=== PATIENT | male | born 1960 | race Caucasian/White ===

== ENCOUNTER 2019-07-13 19:37 | Emergency (ER) | payer OTHER ==
[2019-07-13] MEDS ORDERED: SODIUM CHLORIDE 1,000 ML IV STA (19:43)
[2019-07-13 19:54] VITALS: BP 147/85; PULSE 86; TEMP 98.8; BMI 31.9
[2019-07-13 20:16] LABS: BASO % 1.7 % (0-2.0); EOS % 2.3 % (0-4.5); HEMATOCRIT 41.8 % (35.4-49); LYMPH % 10.8 % (8-40); MCH 29.9 pg (25.7-33.7); MCHC 33.5 g/dl (32.0-35.9); MEAN CELL VOLUME 89.1 fl (80-96); MEAN PLT VOLUME 9.3 fl (7.5-11.1); MONO % 9.3 % (3.8-10.2); NEUT % 75.9 % (42.8-82.8); PLATELET COUNT 245 K/MM3 (134-434); RBC 4.69 M/mm3 (4.00-5.60); RDW 13.1 % (11.9-15.9); WHITE BLOOD COUNT 13.2 K/mm3 (4.0-10.8)
[2019-07-13 20:28] LABS: ALBUMIN 3.8 g/dl (3.4-5.0); CALCIUM 9.1 mg/dl (8.5-10); CREATININE 0.9 mg/dl (0.55-1.3); TOT PROT 6.6 g/dl (6.4-8.2)
[2019-07-13] MEDS ORDERED: metroNIDAZOLE 250 MG TABLET PO ONE (23:11)
[2019-07-13] MEDS ORDERED: metroNIDAZOLE 250 MG TABLET ONE (23:12)
--- NOTE | 2019-07-13 23:24 | PDOC ---
Documentation entered by Vipul Oneal SCRIBE, acting as scribe for Crystal Nunez MD. Crystal Nunez MD: This documentation has been prepared by the Jm degroot Aiswarya, SCRIBE, under my direction and personally reviewed by me in its entirety. I confirm that the documentation accurately reflects all work, treatment, procedures, and medical decision making performed by me. History of Present Illness - General Chief Complaint: Pain Stated Complaint: LLQ ABD PAIN Time Seen by Provider: 07/13/19 19:40 History Source: Patient Exam Limitations: No Limitations - History of Present Illness Initial Comments: 07/13/19 21:12 The patient is a 59 year old male, with a significant PMH of diverticulitis, who presents to the emergency department today complaining LLQ constant intermittent abdominal pain that began 10 to 14 days ago. The patient states he endorses associated symptoms of sweats, weakness and diarrhea with a severity of 3/10. He states he has had flares in the past that was treated with antibiotics. The patient denies chest pain, shortness of breath, headache and dizziness.Denies fever, chills, nausea, vomit and constipation.Denies dysuria, frequency, urgency and hematuria. Allergies: NKDA Past surgical history: None reported Social history: None reported PCP: Dr. Saini Is this a multiple visit Asthma Patient?: No Past History - Past Medical History Allergies/Adverse Reactions: Allergies Allergy/AdvReac Type Severity Reaction Status Date / Time No Known Allergies Allergy Verified 07/13/19 19:39 Home Medications: Ambulatory Orders Amox-Tr/K Cl [Augmentin - 500Mg Tablet] 1 tab PO BID #20 tablet 07/13/19 Bifidobacterium Infantis [Align] 10.5 mg PO DAILY #30 tab.chew 07/13/19 metroNIDAZOLE [Flagyl -] 500 mg PO TID #30 tablet 07/13/19 COPD: No GI Disorders: Yes (diverticulitis) Hypercholesterolemia: Yes - Surgical History Cardiac Surgery: Yes (as a child) - Psycho Social/Smoking Cessation Hx Smoking History: Former smoker Have you smoked in the past 12 months: No Information on smoking cessation initiated: No Hx Alcohol Use: No Substance Use Type: None, Alcohol Review of Systems - Review of Systems Able to Perform ROS?: Yes Comments:: 07/13/19 21:13 GENERAL/CONSTITUTIONAL: No fever or chills. No weakness. CARDIOVASCULAR: No chest pain or shortness of breath. RESPIRATORY: No cough, wheezing, or hemoptysis. GASTROINTESTINAL: +diarrhea. LLQ pain No nausea, vomiting or constipation. GENITOURINARY: No dysuria, frequency, or change in urination. MUSCULOSKELETAL: No joint or muscle swelling or pain. No neck or back pain. SKIN: No rash NEUROLOGIC: No headache, vertigo, loss of consciousness, or change in strength/ sensation. *Physical Exam - Vital Signs Last Vital Signs Temp Pulse Resp BP Pulse Ox 98.8 F 86 18 147/85 97 07/13/19 19:37 07/13/19 19:37 07/13/19 19:37 07/13/19 19:37 07/13/19 19:37 - Physical Exam Comments: 07/13/19 21:15 GENERAL: The patient is in no acute distress. HEAD: Normal with no signs of trauma. LUNGS: Breath sounds equal, clear to auscultation bilaterally. No wheezes, and no crackles. HEART:Regular rate and rhythm, normal S1 and S2 without murmur, rub or gallop. ABDOMEN: +LLQ tenderness on palpation. EXTREMITIES: Normal range of motion, no edema. No clubbing or cyanosis. No erythema, or tenderness. NEUROLOGICAL: Cranial nerves II through XII grossly intact. Normal speech. No focal neurological deficits. MUSCULOSKELETAL: Back non-tender to palpation, no CVA tenderness SKIN: Warm, Dry, normal turgor, no rashes or lesions noted. ED Treatment Course - LABORATORY CBC & Chemistry Diagram: 07/13/19 20:00 07/13/19 20:00 - ADDITIONAL ORDERS Additional order review: Laboratory Results 07/13/19 20:00 Sodium 137 Potassium 4.0 Chloride 104 Carbon Dioxide 27 Anion Gap 6 L BUN 17.0 Creatinine 0.9 Est GFR (CKD-EPI)AfAm 106.46 Est GFR (CKD-EPI)NonAf 91.86 Random Glucose 108 H Calcium 9.1 Total Bilirubin 1.0 AST 22 ALT 21 Alkaline Phosphatase 69 Total Protein 6.6 Albumin 3.8 07/13/19 20:00 RBC 4.69 MCV 89.1 MCHC 33.5 RDW 13.1 MPV 9.3 Neutrophils % 75.9 Lymphocytes % 10.8 D Monocytes % 9.3 Eosinophils % 2.3 D Basophils % 1.7 D - RADIOLOGY Radiology Studies Ordered: Category Date Time Status ABDOMEN & PELVIS CT WITH CONTR [CT] Stat CT Scan 07/13/19 19:41 Ordered Medical Decision Making - Medical Decision Making 07/13/19 20:54 Mr Modi is a 59 yo M who presents to the ER with a complaint of LLQ abdominal pain He has a history of diverticulitis Pt presents To the ER with a complaint of left lower quadrant pain. Patient states his symptoms began between 10 and 14 days ago. He initially noted what he thought was a gastroenteritis. Subsequent to that he noted persistent left lower quadrant pain and tenderness. His pain progressively worsened over the course of 10 days. He thought this was likely diverticulitis and changed his diet (which is how history of diverticulitis in the past) (. He decided to seek medical attention because his pain has not improved. Patient has noted night sweats, although has not documented a fever. Patient denies nausea, vomiting. Has normal appetite. Patient has noted loose stools. Patient reports pain is in the left lower quadrant, constant, intermittently worsening, worse with palpation of the area. Pain is rated 3/10 Of note, patient denies any recent travel. Is followed by Dr. Saini but has not seen him in several years. Last colonoscopy was approximately 10 years ago On examination: Heart lungs are normal Abdomen is soft, nondistended. Patient has left lower quadrant tenderness to palpation, no involuntary guarding or rebound. Includes but is not limited to: Diverticulitis (uncomplicated/complicated), colitis, kidney stone Will do: Labs, IV fluids Patient refuses pain medication at this time Will do CT of the abdomen and pelvis. 07/13/19 22:43 LABS: Laboratory Tests 07/13/19 20:00 WBC 13.2 H Hgb 14.0 Hct 41.8 Plt Count 245 Neutrophils % 75.9 CT: THIS IS A PRELIMINARY REPORT FROM [facility] DATE OF SERVICE: 2019-07-13 21:51:22 IMAGES: 518 EXAM: ABDOMEN \T\ PELVIS CT WITH CONTR HISTORY: 59-Year-Old Male Left Lower Quadrant Tenderness. COMPARISON: None. CONTRAST: 100 mL intravenous contrast and oral contrast was administered FINDINGS: Mild basilar atelectasis. Liver gallbladder spleen and right adrenal glands and kidneys appear unremarkable. Mild atherosclerosis of the abdominal pelvic vasculature. Nonspecific masslike prominence of the body the pancreas measures approximately 1.7 x 1.6 cm on axial image 57 on image 54 with abnormal dilation of the pancreatic duct in the tail of the pancreas and asymmetric atrophy of the pancreatic tail may be benign or malignant. Left adrenal nonspecific 3.2 x 2.8 x 2.5 cm masslike prominence on axial image 48 and coronal image 35 may be benign or malignant. Stomach small bowel and appendix appear unremarkable. No appendicitis. Acute diverticulitis of the descending and sigmoid colon with pericolonic fluid from infection and other underlying disease in the wall of the sigmoid colon cannot be excluded on axial image 109 and coronal image 31. No free air. No abscess. Nodular nonspecific prostatomegaly. Bladder appears unremarkable. Small umbilical and small inguinal hernias of omental fat without incarceration. Moderate to severe degenerative disc disease. Moderate to severe degenerative joint disease of lower lumbar facets. Moderate to severe multilevel neural foraminal narrowing in the lower lumbar levels. Mild degenerative joint disease of the hips. IMPRESSION: Nonspecific masslike prominence of the body the pancreas measures approximately 1.7 x 1.6 cm on axial image 57 on image 54 with abnormal dilation of the pancreatic duct in the tail of the pancreas and asymmetric atrophy of the pancreatic tail may be benign or malignant. If clinically indicated follow up outpatient MRI pancreas with contrast may be needed. Left adrenal nonspecific 3.2 x 2.8 x 2.5 cm masslike prominence on axial image 48 and coronal image 35 may be benign or malignant. If clinically indicated follow up outpatient MRI abdomen adrenal gland protocol may be needed. Acute diverticulitis of the descending and sigmoid colon with pericolonic fluid from infection and other underlying disease in the wall of the sigmoid colon cannot be excluded on axial image 109 and coronal image 31. If clinically indicated follow-up outpatient evaluation following treatment for acute diverticulitis may be needed to exclude underlying disease. Nodular nonspecific prostatomegaly. If clinically indicated follow up outpatient PSA level may be needed. This CT exam was performed using one or more of the following dose reduction techniques: automated exposure control, adjustment of the mA and/or kV according to patient size, use of iterative reconstruction technique. 07/13/19 23:17 All results reviewed with patient He would like to be discharged to home Plan will be to follow up with PMD and GI Pt also knows that he will need to follow up with Urology Will initiate abx therapy and Probiotic Pt understands the importance of monitoring for fevers If fevers, pt must return to the ER If increased pain, abdominal distention, must return to the ER Clinical impression: Acute Uncomplicated Diverticulitis, initial presentation Prostate enlargement, initial presentation Adrenal mass, initial presentation Discharge - Discharge Information Problems reviewed: Yes Clinical Impression/Diagnosis: Diverticulitis large intestine Qualifiers: Diverticulitis bleeding: without bleeding Diverticulitis complication: without perforation or abscess Qualified Code(s): K57.32 - Diverticulitis of large intestine without perforation or abscess without bleeding Condition: Stable Disposition: HOME - Admission No - Additional Discharge Information Health Concerns: Diverticulitis Enlarged Prostate Adrenal Mass Pancreatic Abnormality Goals: Follow up with PMD and GI Initiate Antibiotic therapy Prescriptions: Amox-Tr/K Cl [Augmentin - 500Mg Tablet] 1 tab PO BID #20 tablet Bifidobacterium Infantis [Align] 10.5 mg PO DAILY #30 tab.chew metroNIDAZOLE [Flagyl -] 500 mg PO TID #30 tablet Prescription Drug Monitoring Program (I-STOP) results: I-STOP not reviewed - Follow up/Referral Referrals: Mally Poole [Primary Care Provider] - - Patient Discharge Instructions Patient Printed Discharge Instructions: DI for Diverticulitis Additional Instructions: Return to the emergency department immediately with ANY new, persistent or worsening symptoms. Continue any medications as previously prescribed by your physician. Please initiate antibiotic therapy as well as Probiotics You should follow up with your primary doctor and [employer] as soon as possible regarding today's emergency department visit. Please make sure your doctor reviews the results of your emergency evaluation. Thank you for coming to the [facility] today for your care. It was a pleasure to see you today. Please note that your evaluation is INCOMPLETE until you follow-up with your doctor. - Post Discharge Activity Work/Back to School Note: Back to Work
== END 2019-07-13 23:40 | disposition home or self-care (01) ==
LOC: FER 19:37
PROC: 3E0337Z Introduction of Electrolytic and Water Balance Substance into Peripheral Vein, Percutaneous Approach (ICD-10-PCS; principal; 2019-07-13)
DX: K57.32 Diverticulitis of large intestine without perforation or abscess without bleeding (principal); Z87.891 Personal history of nicotine dependence; E78.00 Pure hypercholesterolemia, unspecified; I51.9 Heart disease, unspecified; K57.92 Diverticulitis of intestine, part unspecified, without perforation or abscess without bleeding
CPT/HCPCS: 36415; 74177-TC; 80053; 81003; 81015; 83605; 83690; 85025; 87086; 99283-25; J7030

== ENCOUNTER 2023-06-25 13:27 | Inpatient (IN) | payer OTHER, MEDICARE ==
[2023-06-25 13:43] VITALS: BMI 31.9
[2023-06-25] MEDS ORDERED: KETOROLAC TROMETHAMINE 30 MG/1 ML VIAL IM ONE (13:49)
[2023-06-25] MEDS ORDERED: LIDOCAINE 5% TOPICAL PATCH TP ONE (14:01)
[2023-06-25] MEDS ORDERED: KETOROLAC TROMETHAMINE 30 MG/1 ML VIAL ONE (14:03)
[2023-06-25] MEDS ORDERED: LIDOCAINE 5% TOPICAL PATCH ONE (14:04)
[2023-06-25] MEDS ORDERED: morphine CARPU-JECT 2 MG/1 ML DISP.SYRIN IM ONE (14:05)
[2023-06-25] MEDS ORDERED: ONDANSETRON *ODT* 4 MG TABLET SL ONE (14:06)
[2023-06-25] MEDS ORDERED: morphine SULFATE 4 MG/ML VIAL ONE ×2 (14:11→20:43)
[2023-06-25] MEDS ORDERED: ONDANSETRON *ODT* 4 MG TABLET ONE (14:11)
[2023-06-25] MEDS ORDERED: IBUPROFEN 600 MG TABLET (FP) PO ONE ×2 (15:29→16:28)
[2023-06-25] MEDS ORDERED: HYDROmorphone HCl 2 MG/ML VIAL IM ONE (16:28)
[2023-06-25] MEDS ORDERED: HYDROmorphone HCl 2 MG/ML VIAL ONE (16:46)
[2023-06-25] MEDS ORDERED: DEXAMETHASONE SOD PHOSPHATE 20 MG/5 ML VIAL IVPB ONE (17:07)
[2023-06-25 18:11] LABS: HEMATOCRIT 47.7 % (35.4-49); HEMOGLOBIN 16.5 G/dL (11.7-16.9); MCH 31.4 pg (25.7-33.7); MCHC 34.5 g/dl (32.0-35.9); MEAN CELL VOLUME 91.1 fl (80-96); PLATELET COUNT 247.5 10^3/uL (134-434); RBC 5.24 10^6/uL (4.00-5.60); RDW 14.7 % (11.9-15.9); WHITE BLOOD COUNT 13.7 10^3/uL (4.0-10.8)
[2023-06-25 18:28] LABS: ALBUMIN 4.3 g/dl (3.4-5.0); BLOOD UREA NITROGEN 12.5 mg/dl (7-18); CALCIUM 9.3 mg/dl (8.5-10.1); CREATININE 0.8 mg/dl (0.6-1.3); POTASSIUM 3.3 mmol/L (3.5-5.1); SGOT/AST 27.4 U/L (15-37); SGPT/ALT 26.4 U/L (7-52); TOT PROT 6.5 g/dl (6.4-8.2)
[2023-06-25 18:37] LABS: PLATELET ESTIMATE ADEQUATE
[2023-06-25] MEDS ORDERED: DEXAMETHASONE SOD PHOSPHATE 10 MG/1 ML VIAL ONE (18:41)
[2023-06-25] MEDS ORDERED: POTASSIUM CHLORIDE TABS 20 MEQ TABLET.ER (FP) PO ONE ×2 (19:28→20:49)
[2023-06-25] MEDS ORDERED: morphine CARPU-JECT 4 MG/1 ML DISP.SYRIN IVPUSH PRN (20:06)
[2023-06-25 22:00] VITALS: RESP 18
[2023-06-25] MEDS ORDERED: LIDOCAINE PATCH REMOVAL MC ONE (22:00)
[2023-06-26] MEDS: IBUPROFEN 400 MG TABLET (FP) PO PRN ×2 (01:31→09:40)
[2023-06-26] MEDS: KETOROLAC TROMETHAMINE 15 MG/ML VIAL IM PRN ×3 (06:38→21:01)
[2023-06-26 08:33] LABS: HEMATOCRIT 47.1 % (35.4-49); HEMOGLOBIN 15.9 G/dL (11.7-16.9); MCH 30.7 pg (25.7-33.7); MCHC 33.7 g/dl (32.0-35.9); MEAN CELL VOLUME 91.3 fl (80-96); MEAN PLT VOLUME 9.7 fl (7.5-11.1); RBC 5.16 10^6/uL (4.00-5.60); RDW 14.3 % (11.9-15.9); WHITE BLOOD COUNT 10.4 10^3/uL (4.0-10.8)
[2023-06-26 08:43] LABS: BLOOD UREA NITROGEN 16.1 mg/dl (7-18); CALCIUM 9.5 mg/dl (8.5-10.1); CREATININE 0.9 mg/dl (0.6-1.3); MAGNESIUM 1.9 mg/dL (1.8-2.4); POTASSIUM 4.3 mmol/L (3.5-5.1)
[2023-06-26] MEDS: LIDOCAINE 5% TOPICAL PATCH TP SCH (13:39)
[2023-06-26] MEDS ORDERED: LIDOCAINE PATCH REMOVAL MC SCH (22:00)
[2023-06-27] MEDS: KETOROLAC TROMETHAMINE 15 MG/ML VIAL IM PRN ×3 (02:50→15:00)
[2023-06-27 09:04] VITALS: BP 167/106; PULSE 60; TEMP 97.8
[2023-06-27] MEDS: LIDOCAINE 5% TOPICAL PATCH TP SCH (09:35)
== END 2023-06-27 15:27 | disposition home or self-care (01) | DRG 552 ==
LOC: FER 13:27 → FM/S 21:17
PROVIDERS: ADMIT Internal Medicine
DX: M54.16 Radiculopathy, lumbar region (principal); M25.552 Pain in left hip; M47.896 Other spondylosis, lumbar region; M54.50 Low back pain, unspecified
CPT/HCPCS: 0241U-QW; 36415; 72100-TC-FY; 73502-TC-LT-FY; 80048; 80053; 83735; 85027; 93005; 97116-GP; 97162-GP; 99285-25; Q0162

== ENCOUNTER 2023-08-06 08:47 | Emergency (ER) | payer OTHER, MEDICARE ==
[2023-08-06 08:57] VITALS: RESP 19; BMI 31.1
[2023-08-06] MEDS ORDERED: ACETAMINOPHEN 1000 MG/100 ML BAG IVPB ONE (08:59)
[2023-08-06] MEDS ORDERED: KETOROLAC TROMETHAMINE 30 MG/1 ML VIAL IVPUSH ONE (08:59)
[2023-08-06] MEDS ORDERED: diazePAM CARPU-JECT 10 MG/2 ML DISP.SYRIN IVPUSH ONE (09:00)
[2023-08-06] MEDS ORDERED: LIDOCAINE 5% TOPICAL PATCH TP ONE (09:17)
[2023-08-06] MEDS ORDERED: KETOROLAC TROMETHAMINE 30 MG/1 ML VIAL ONE (09:28)
[2023-08-06] MEDS ORDERED: ACETAMINOPHEN INJECTION 100 ML IVPB ONE (09:28)
[2023-08-06] MEDS ORDERED: LIDOCAINE 5% TOPICAL PATCH ONE (09:29)
[2023-08-06] MEDS ORDERED: diazePAM CARPU-JECT 10 MG/2 ML DISP.SYRIN ONE (09:29)
[2023-08-06 09:54] LABS: HEMOGLOBIN 16.5 G/dL (11.7-16.9); MCH 30.6 pg (25.7-33.7); MCHC 33.6 g/dl (32.0-35.9); MEAN PLT VOLUME 9.5 fl (7.5-11.1); PLATELET COUNT 330.2 10^3/uL (134-434); RBC 5.38 10^6/uL (4.00-5.60); RDW 15.3 % (11.9-15.9); WHITE BLOOD COUNT 13.8 10^3/uL (4.0-10.8)
[2023-08-06 09:57] LABS: ALBUMIN 4.5 g/dl (3.4-5.0); BILIRUBIN,TOTAL 0.9 mg/dl (0.2-1); CALCIUM 9.9 mg/dl (8.5-10.1); CREATININE 0.8 mg/dl (0.6-1.3); POTASSIUM 3.8 mmol/L (3.5-5.1); TOT PROT 6.9 g/dl (6.4-8.2)
[2023-08-06 10:52] LABS: ERYTHROCYTE SEDIMENTATION RATE 42 mm/hr (0-20)
[2023-08-06] MEDS ORDERED: oxyCODONE HCL 5 MG TABLET PO ONE (11:32)
[2023-08-06] MEDS ORDERED: oxyCODONE HCL 5 MG TABLET ONE (11:54)
[2023-08-06] MEDS ORDERED: ONDANSETRON 4 MG/2 ML VIAL IVPUSH ONE (12:14)
[2023-08-06] MEDS ORDERED: POLYETHYLENE GLYCOL (HEALTHYLAX) 3350 17 GM PACKET PO ONE (12:15)
[2023-08-06] MEDS ORDERED: ONDANSETRON 4 MG/2 ML VIAL ONE (12:21)
[2023-08-06 12:22] LABS: PLATELET ESTIMATE ADEQUATE
[2023-08-06] MEDS ORDERED: SODIUM CHLORIDE 1,000 ML IV STA (12:45)
[2023-08-06 13:52] VITALS: TEMP 98.7
[2023-08-06] MEDS ORDERED: ACETAMINOPHEN 500 MG TABLET (FP) ONE (14:08)
[2023-08-06 14:41] VITALS: BP 149/88; PULSE 101
[2023-08-06 15:08] LABS: EPITHELIAL CELLS 0-5 /hpf
[2023-08-06] MEDS ORDERED: LIDOCAINE PATCH REMOVAL MC ONE (22:00)
== END 2023-08-06 15:24 | disposition home or self-care (01) ==
LOC: FER 08:47
PROC: 3E033NZ Introduction of Analgesics, Hypnotics, Sedatives into Peripheral Vein, Percutaneous Approach (ICD-10-PCS; principal; 2023-08-06)
PROC: 3E033GC Introduction of Other Therapeutic Substance into Peripheral Vein, Percutaneous Approach (ICD-10-PCS; 2023-08-06)
PROC: 3E033GC Introduction of Other Therapeutic Substance into Peripheral Vein, Percutaneous Approach (ICD-10-PCS; 2023-08-06)
PROC: 3E033GC Introduction of Other Therapeutic Substance into Peripheral Vein, Percutaneous Approach (ICD-10-PCS; 2023-08-06)
PROC: 3E0337Z Introduction of Electrolytic and Water Balance Substance into Peripheral Vein, Percutaneous Approach (ICD-10-PCS; 2023-08-06)
DX: M54.50 Low back pain, unspecified (principal)
CPT/HCPCS: 36415; 71275-TC; 72131-TC; 74174-TC; 80053; 81003; 81015; 85027; 85651; 86140; 87086; 96361; 96374; 96375; 99285-25; Q9967

== ENCOUNTER 2023-09-18 14:31 | Emergency (ER) | payer OTHER, MEDICARE ==
[2023-09-18 15:10] VITALS: TEMP 97.7; BMI 28.8
[2023-09-18] MEDS ORDERED: HYDROCHLOROTHIAZIDE 25 MG TABLET (FP) PO ONE (15:25)
[2023-09-18] MEDS ORDERED: HYDROCHLOROTHIAZIDE 25 MG TABLET (FP) ONE (15:31)
[2023-09-18 16:34] VITALS: BP 161/100; PULSE 90; RESP 16
== END 2023-09-18 16:36 | disposition home or self-care (01) ==
LOC: FER 14:31
DX: I10 Essential (primary) hypertension (principal)
CPT/HCPCS: 93005; 99283-25

== ENCOUNTER 2023-10-11 04:10 | Day surgery (SDC) | payer OTHER, MEDICARE ==
[2023-09-13 11:28] VITALS: BMI 28.8
[~2023-10-11 04:10] MED LIST: ACETAMINOPHEN 500 MG TABLET (FP) PO PRN
[2023-10-11 06:31] VITALS: RESP 18
[2023-10-11] MEDS ORDERED: LIDOCAINE HCL/PF 1% SDV 5ML VIAL ONE (07:17)
[2023-10-11] MEDS ORDERED: DEXAMETHASONE SOD PHOSPHATE 10 MG/1 ML VIAL ONE (07:17)
[2023-10-11] MEDS ORDERED: LIDOCAINE HCL 1% PRESERVATIVE FREE - 30ML VIAL IJ ONE (08:31)
[2023-10-11] MEDS ORDERED: DEXAMETHASONE SOD PHOSPHATE 10 MG/1 ML VIAL IM ONE (08:31)
[2023-10-11] MEDS ORDERED: IOHEXOL 180 MG/1 ML ML IJ ONE (08:31)
[2023-10-11] MEDS ORDERED: ACETAMINOPHEN 500 MG TABLET (FP) PO PRN (09:07)
[2023-10-11 09:49] VITALS: BP 135/87; PULSE 62; TEMP 98.5
== END 2023-10-11 09:30 | disposition home or self-care (01) ==
LOC: JASU-SURG 04:10
PROVIDERS: ATTEND Pain Medicine Pain Medicine
PROC: 3E0R3BZ Introduction of Anesthetic Agent into Spinal Canal, Percutaneous Approach (ICD-10-PCS; 2023-10-11)
PROC: 3E0R33Z Introduction of Anti-inflammatory into Spinal Canal, Percutaneous Approach (ICD-10-PCS; principal; 2023-10-11 08:00)
DX: M54.16 Radiculopathy, lumbar region (principal); M48.061 Spinal stenosis, lumbar region without neurogenic claudication
CPT/HCPCS: 76000-TC-FY; J1100